=== PATIENT | male | born 1960 | race American Indian/Alaskan Native ===

== ENCOUNTER → 2016-11-29 | Outpatient (CLI) | payer BC, OTHER | END | disposition home or self-care (01) | LOC: CVU 09:37 | PROVIDERS: ATTEND Internal Medicine Cardiovascular Disease | DX: I35.8 Other nonrheumatic aortic valve disorders (principal); I51.7 Cardiomegaly; I48.0 Paroxysmal atrial fibrillation | CPT/HCPCS: 93306 ==